=== PATIENT | female | born 1960 | race Caucasian/White ===

== ENCOUNTER 2024-11-06 13:33 | Outpatient (CLI) | payer OTHER | END 2024-11-06 13:45 | disposition home or self-care (01) | LOC: MAMO-SONO 13:33 | DX: N60.29 Fibroadenosis of unspecified breast (principal); Z12.31 Encounter for screening mammogram for malignant neoplasm of breast ==

== ENCOUNTER → 2024-11-27 14:02 | Outpatient (CLI) | payer OTHER | END | disposition home or self-care (01) | LOC: NUCLEAR 14:02 | PROVIDERS: ATTEND General Practice | DX: M81.0 Age-related osteoporosis without current pathological fracture (principal) ==

== ENCOUNTER 2024-11-28 11:21 | Outpatient (CLI) | payer OTHER | END 2024-11-28 11:30 | disposition home or self-care (01) | LOC: SONOGRAMA 11:21 | DX: R10.2 Pelvic and perineal pain (principal) ==